=== PATIENT | male | born 2000 | race Caucasian/White ===

== ENCOUNTER 2019-02-06 09:09 | Emergency (ER) | payer OTHER, SELFPAY ==
[2019-02-06 09:14] VITALS: BP 142/82; PULSE 80; RESP 18; TEMP 36.6; O2SAT 97
--- NOTE | 2019-02-06 09:28 | W.ED.GENAD ---
Discharge Plan Disposition Patient Disposition: HOME Condition: Stable Discharge Details Chief Complaint: Abd Prob Clinical Impression: Diarrhea Primary Care Provider: Justyn Park ED Provider: Elias Leyva [place] Meds and New Rx's Prescriptions: New ondansetron 4 mg tablet,disintegrating 4 mg PO TID PRN (Reason: nausea and vomiting) 5 Days Qty: 20 RF: 0 No Action inhalational spacing device [Aerochamber Plus Flow-Vu] 1 EACH spacer 1 ea Miscellaneous PRN Qty: 1 RF: 0 Discharge Instructions Instructions: Acute Diarrhea (ED) Medical Decision Making 18 yo male who denies chronic medical problems comes in with cc of loose stools and intermittent constipation. Denies recent travel or new foods. Has had intermittent nausea, had a fever to 100 a week ago but none since. On exam he is in no distress, speaking in full sentences in no distress. He has no abdominal tenderness on exam and appears well hydrated. He has no symptoms at this present time. I do not feel emergent work up indicated given lack of symptoms and normal exam at this time. Will have him f/u with pcp and send home with stool collection kit if he has diarrhea again, and return precautions given Differential Diagnosis colitis, gastroenteritis, norovirus HPI General Mode of arrival: ambulatory. Date/Time Provider Initiated Documentation: 02/06/19 09:23. Limitations to Documentation: no limitations. Information obtained by: patient. History of Present Illness 18 year old M presents to the emergency department with the chief complaint of diarrhea, described as mild, Patient started experiencing this week(s) (1) No relieving factors improve symptom(s), No exacerbating factors reported . Patient did receive the following treatments prior to arrival, none Related Data Home Medications Medication Instructions Recorded Confirmed inhalational spacing device #1 script 08/23/16 [Aerochamber Plus Flow-Vu] ondansetron 4 mg PO TID PRN 5 Days #20 tab 02/06/19 Previous Rx's Medication Instructions Recorded ondansetron 4 mg PO TID PRN 5 Days #20 tab 02/06/19 Allergies Allergy/AdvReac Type Severity Reaction Status Date / Time erythromycin ethylsuccinate Allergy Intermediate GI Upset Unverified 02/06/19 09:18 [From Pediazole] sulfisoxazole acetyl Allergy Intermediate GI Upset Unverified 02/06/19 09:18 [From Pediazole] General Stated Complaint: Abd Prob NIKITA: 3 Review of Systems Review of Systems All systems reviewed & are unremarkable except as noted in HPI and below Constitutional Denies weakness Cardiovascular Denies chest pain and Denies dyspnea Respiratory Denies cough and Denies dyspnea Gastrointestinal Denies abdominal pain and Denies vomiting Integumentary/Breasts Denies rash Neurologic Denies weakness Endocrine Denies heat intolerance PFSH Family History Sister Hypothyroidism Social History Smoking/Tobacco Use Status: Current every day Drug use: Current Sobriety Exam Const General: no acute distress Orientation: alert HENMT Head: normal to inspection Ears: external ears normal General nose exam: external nose normal Mouth: moist mucous membranes Eyes General: appearance normal, both eyes and all related structures Neck Neck: normal visual inspection Resp Effort & Inspection: normal respiratory effort and able to speak in complete sentences Cardio Rate: regular rate GI Inspection: normal to inspection Skin General skin exam: no rashes or lesions noted Neuro General: alert and oriented x3 Extrem General: normal to inspection Psych Mental Status: mental status grossly normal Course Vital Signs Temperature 36.6 C 02/06/19 09:14 Pulse 80 02/06/19 09:14 Respiratory Rate 18 02/06/19 09:14 Blood Pressure 142/82 H 02/06/19 09:14 Pulse Oximetry 97 02/06/19 09:14 Temperature 36.6 C 02/06/19 09:14 Temperature Source Skin 02/06/19 09:14 Pulse 80 02/06/19 09:14 Respiratory Rate 18 02/06/19 09:14 Blood Pressure 142/82 H 02/06/19 09:14 Pulse Oximetry 97 02/06/19 09:14 Oxygen Delivery Method Room Air 02/06/19 09:14 Oxygen Flow Rate 0 02/06/19 09:14 Pain Level 4 02/06/19 09:14
--- NOTE | 2019-02-06 09:33 | ED.GENADUL_ITS ---
Discharge Plan Disposition Patient Disposition: HOME Condition: Stable Discharge Details Chief Complaint: Abd Prob Clinical Impression: Diarrhea Primary Care Provider: Justyn Park ED Provider: Elias Leyva [place] Meds and New Rx's Prescriptions: New ondansetron 4 mg tablet,disintegrating 4 mg PO TID PRN (Reason: nausea and vomiting) 5 Days Qty: 20 RF: 0 No Action inhalational spacing device [Aerochamber Plus Flow-Vu] 1 EACH spacer 1 ea Miscellaneous PRN Qty: 1 RF: 0 Discharge Instructions Instructions: Acute Diarrhea (ED) Medical Decision Making 18 yo male who denies chronic medical problems comes in with cc of loose stools and intermittent constipation. Denies recent travel or new foods. Has had intermittent nausea, had a fever to 100 a week ago but none since. On exam he is in no distress, speaking in full sentences in no distress. He has no abdominal tenderness on exam and appears well hydrated. He has no symptoms at this present time. I do not feel emergent work up indicated given lack of symptoms and normal exam at this time. Will have him f/u with pcp and send home with stool collection kit if he has diarrhea again, and return precautions given Differential Diagnosis colitis, gastroenteritis, norovirus HPI General Mode of arrival: ambulatory . Date/Time Provider Initiated Documentation: 02/06/19 09:23 . Limitations to Documentation: no limitations . Information obtained by: patient . History of Present Illness 18 year old M presents to the emergency department with the chief complaint of diarrhea, described as mild, Patient started experiencing this week(s) (1) No relieving factors improve symptom(s), No exacerbating factors reported . Patient did receive the following treatments prior to arrival, none Related Data Home Medications Medication Instructions Recorded Confirmed inhalational spacing device #1 script 08/23/16 [Aerochamber Plus Flow-Vu] ondansetron 4 mg PO TID PRN 5 Days #20 tab 02/06/19 Previous Rx's Medication Instructions Recorded ondansetron 4 mg PO TID PRN 5 Days #20 tab 02/06/19 Allergies Allergy/AdvReac Type Severity Reaction Status Date / Time erythromycin ethylsuccinate Allergy Intermediate GI Upset Unverified 02/06/19 09:18 [From Pediazole] sulfisoxazole acetyl Allergy Intermediate GI Upset Unverified 02/06/19 09:18 [From Pediazole] General Stated Complaint: Abd Prob NIKITA: 3 Review of Systems Review of Systems All systems reviewed & are unremarkable except as noted in HPI and below Constitutional Denies weakness Cardiovascular Denies chest pain and Denies dyspnea Respiratory Denies cough and Denies dyspnea Gastrointestinal Denies abdominal pain and Denies vomiting Integumentary/Breasts Denies rash Neurologic Denies weakness Endocrine Denies heat intolerance PFSH Family History Sister Hypothyroidism Social History Smoking/Tobacco Use Status: Current every day Drug use: Current Sobriety Exam Const General: no acute distress Orientation: alert HENMT Head: normal to inspection Ears: external ears normal General nose exam: external nose normal Mouth: moist mucous membranes Eyes General: appearance normal, both eyes and all related structures Neck Neck: normal visual inspection Resp Effort & Inspection: normal respiratory effort and able to speak in complete sentences Cardio Rate: regular rate GI Inspection: normal to inspection Skin General skin exam: no rashes or lesions noted Neuro General: alert and oriented x3 Extrem General: normal to inspection Psych Mental Status: mental status grossly normal Course Vital Signs Temperature 36.6 C 02/06/19 09:14 Pulse 80 02/06/19 09:14 Respiratory Rate 18 02/06/19 09:14 Blood Pressure 142/82 H 02/06/19 09:14 Pulse Oximetry 97 02/06/19 09:14 Temperature 36.6 C 02/06/19 09:14 Temperature Source Skin 02/06/19 09:14 Pulse 80 02/06/19 09:14 Respiratory Rate 18 02/06/19 09:14 Blood Pressure 142/82 H 02/06/19 09:14 Pulse Oximetry 97 02/06/19 09:14 Oxygen Delivery Method Room Air 02/06/19 09:14 Oxygen Flow Rate 0 02/06/19 09:14 Pain Level 4 02/06/19 09:14
== END 2019-02-06 09:37 | disposition home or self-care (01) ==
LOC: ER 09:38
PROVIDERS: Emergency Provider Emergency Medicine; PCP Pediatrics
DX: R19.7 Diarrhea, unspecified (principal); R11.0 Nausea
CPT/HCPCS: 99283

== ENCOUNTER 2019-11-24 15:16 | Emergency (ER) | payer BC, SELFPAY ==
[2019-11-24 15:21] VITALS: BP 154/79; PULSE 82; RESP 18; TEMP 36.6; O2SAT 99
--- NOTE | 2019-11-24 15:56 | ED.GENADUL_ITS ---
Discharge Plan Disposition Patient Disposition: HOME Condition: Stable Discharge Details Chief Complaint: GI Bleed Clinical Impression: Rectal bleeding Primary Care Provider: [facility] Provider: Olman Atkinson Home Meds and New Rx's Prescriptions: No Action (DME) inhalational spacing device [Aerochamber Plus Flow-Vu] 1 EACH spacer 1 ea Miscellaneous PRN Qty: 1 RF: 0 Discharge Instructions Instructions: Rectal Bleeding (ED) Additional Instructions: 1. Drink plenty of fluids. 2. Continue all medications as prescribed. 3. Acetaminophen 1000mg every 4 hours (up to 5 time a day) and/or ibuprofen 600mg every 6 hours as needed for fever or pain. 4. Use stool softeners and increase fiber in your diet for left constipation. 5. If constipation/diarrhea and/or rectal bleeding persist, follow-up with a construction operations manager. Return to the Emergency Department (ED) if your condition worsens, does not improve as expected, or for ANY other concerns. Specifically, return if you have new or uncontrolled pain, worsening fever, difficulty breathing, vomiting, or are unable to drink fluids. Medical Decision Making Presents after a more significant episode of rectal bleeding associated with defecation. Describes having 3 months of intermittent constipation and diarrhea and has had episodes of minimal rectal bleeding associated with bowel movements when constipated. Until today, he has noted blood on paper when he wipes. Today, he noted a tablespoon amount of blood on paper and also minimal blood in the bowl. Of note, he also has had significant anal pain after defecation. Otherwise has had no abdominal pain, bleeding without defecation, or any melena/hematochezia. Discussed clinical scenario suggestive of an anal fissure or internal hemorrhoid. Discharge the plan for increasing fiber in his diet/decreasing constipation and following up as an outpatient as needed for persistent symptoms. Given usual customary return instructions prior to discharge. Medical Records Medical records reviewed: Yes I reviewed the patient's medical records. HPI 19-year-old gent with an unremarkable past medical history presents with 3 months of intermittent rectal pain which worsened today. The patient notes he has had intermittent episodes of constipation and diarrhea over the past 3 months and has occasional episodes of bright red blood per rectum after bowel movements. He has blood when wiping. Of note, he has had no rectal bleeding associated with his diarrhea but has noted rectal pain during those events. When he is more constipated, he has had frequent episodes of blood on paper after wiping and severe pain at his anus after his bowel movement. Today, he noted more blood when wiping (approximately 1 tablespoon) and also a slight amount of blood in the bowl after defecating. He also had pain at his anus which was severe and then resolved. He otherwise denies any other constitutional complaints. He has had no fever/chills, palpitations, chest pain, dyspnea, generalized abdominal pain, urinary symptoms, or any blood in his stools. He denies hematochezia or melena. He has not had an evaluation over the past 2 months for the symptoms. General Date/Time Provider Initiated Documentation: 11/24/19 15:44 . Related Data Home Medications Medication Instructions Recorded Confirmed inhalational spacing device #1 script 08/23/16 [Aerochamber Plus Flow-Vu] Allergies Allergy/AdvReac Type Severity Reaction Status Date / Time erythromycin ethylsuccinate Allergy Intermediate GI Upset Unverified 11/24/19 15:26 [From Pediazole] sulfisoxazole acetyl Allergy Intermediate GI Upset Unverified 11/24/19 15:26 [From Pediazole] General Stated Complaint: GI Bleed NIKITA: 3 Review of Systems All systems reviewed & are unremarkable except as noted in HPI and below PFSH Family History Sister Hypothyroidism Social History Smoking/Tobacco Use Status: Current every day Alcohol Intake: current Alcohol Intake frequency: 3 or more drinks per day Drug use: Current Sobriety Do you feel safe at home: Yes Do you feel safe in your relationship?: Yes Exam Narrative Exam Narrative: Nursing note and vital signs have been reviewed and noted. GENERAL: alert, active, no acute distress, well -hydrated, well-nourished HEENT: atraumatic/normocephalic, PERRLA, EOMI, conjunctiva clear, external ears/canals normal, nasal mucosa normal NECK: supple, full range of motion CARDIOVASCULAR: nl pulses, no edema PULMONARY: nl effort, no audible wheezing or stridor ABDOMEN: non-distended RECTUM: No external hemorrhoids or significant anal fissure appreciated. EXTREMITY: normal muscle tone, all joints with FROM, no deformity NUERO: normal mentation, moving all extremities, normal stance and gait, PSYCH: alert and oriented SKIN: no new rashes or lesions Course Vital Signs Vital signs: Vital Signs Temperature 97.9 F 11/24/19 15:21 Pulse 82 11/24/19 15:21 Respiratory Rate 18 11/24/19 15:21 Blood Pressure 154/79 H 11/24/19 15:21 Pulse Oximetry 99 11/24/19 15:21 Temperature 97.9 F 11/24/19 15:21 Temperature Source Skin 11/24/19 15:21 Pulse 82 11/24/19 15:21 Respiratory Rate 18 11/24/19 15:21 Respiratory Effort Non-Labored 11/24/19 15:24 Blood Pressure 154/79 H 11/24/19 15:21 Blood Pressure Position Sitting 11/24/19 15:21 Pulse Oximetry 99 11/24/19 15:21 Oxygen Delivery Method Room Air 11/24/19 15:21 Oxygen Flow Rate 0 11/24/19 15:21 Pain Level 4 11/24/19 15:21 Lab/Test Results Lab/Test Results: Laboratory Tests Range/Units 11/24/19 15:30 WBC Cancelled RBC Cancelled Hgb Cancelled Hct Cancelled MCV Cancelled MCH Cancelled MCHC Cancelled RDW Cancelled Plt Count Cancelled MPV Cancelled
== END 2019-11-24 15:50 | disposition home or self-care (01) ==
PROVIDERS: Emergency Provider Emergency Medicine
DX: K62.5 Hemorrhage of anus and rectum (principal); K59.00 Constipation, unspecified
CPT/HCPCS: 85027; 99282

== ENCOUNTER 2019-12-07 13:09 | Outpatient (CLI) | payer BC, SELFPAY ==
[2019-12-07 13:41] LABS: Abs Immature Grans 0.01 k/cumm (0.0-0.09); Absolute Basophil Count 0.01 k/cumm (0.0-0.2); Absolute Eosinophil Count 0.06 k/cumm (0.0-0.7); Absolute Lymphocyte Count 1.62 k/cumm (1.2-3.4); Absolute Neutrophil Count 1.97 k/cumm (1.2-6.7); Basophils % 0.3; Eosinophils % 1.5; HCT 42.6 % (40.0-50.0); HGB 14.4 g/dL (13.5-17.5); Immature Grans % 0.3 %; Lymphocytes % 40.8; Mean Corp. HGB Concentration 33.8 g/dL (32.0-36.0); Mean Corpuscular Hemoglobin 29.1 pg (27.0-33.0); Mean Corpuscular Volume 86.1 fL (80-95); Mean Platelet Volume 10.4 fL (8.0-11.0); Monocytes % 7.6; Neutrophils % 49.5; Platelet Count 239 x1000/uL (130-400); RBC 4.95 m/cumm (4.50-6.00); RBC Distribution Width 12.6 % (11.8-14.1); White Blood Cell Count 3.97 k/cumm (4.4-10.8)
[2019-12-07 14:38] LABS: ALT 64 U/L (16-63); AST 33 U/L (15-37); Albumin 3.9 g/dL (3.4-5.0); Alkaline Phosphatase 107 U/L (46-116); Anion Gap 8.2 mmol/L (3-11); BUN 10 mg/dL (7-18); Bilirubin, Total 0.3 mg/dL (0.2-1.0); CO2 29.8 mmol/L (21.0-32.0); CREATININE 0.85 mg/dL (0.70-1.30); Calcium 9.1 mg/dL (8.5-10.1); Chloride 103 mmol/L (98-107); Glucose 87 mg/dL (74-106); Potassium 4.4 mmol/L (3.5-5.1); Sodium 141 mmol/L (136-145); TSH (W/Ref FT4) 1.51 uIU/mL (0.36-3.74)
== END 2019-12-07 13:29 ==
PROVIDERS: PCP Nurse Practitioner Adult Health; Visit Provider Nurse Practitioner Adult Health
DX: K62.5 Hemorrhage of anus and rectum (principal); R19.4 Change in bowel habit; F32.9 Major depressive disorder, single episode, unspecified
CPT/HCPCS: 36415; 80053; 82270; 84443; 85025

== ENCOUNTER 2020-05-06 14:40 | Outpatient (CLI) | payer BC, SELFPAY ==
[2020-05-07 17:44] LABS: COVID-19 RT-PCR UVMMC Result Negative (Negative)
== END 2020-05-06 15:00 ==
PROVIDERS: PCP Nurse Practitioner Adult Health; Visit Provider Nurse Practitioner Adult Health
DX: J02.9 Acute pharyngitis, unspecified (principal); R19.7 Diarrhea, unspecified; R50.9 Fever, unspecified
CPT/HCPCS: U0003

== ENCOUNTER 2021-02-09 09:26 | Outpatient (CLI) | payer BC, SELFPAY ==
[2021-02-10 12:38] LABS: COVID-19 RT-PCR UVMMC Result Negative (Negative)
== END 2021-02-09 09:27 | disposition home or self-care (01) ==
PROVIDERS: PCP Nurse Practitioner Adult Health; Visit Provider Nurse Practitioner Adult Health
DX: Z20.822 Contact with and (suspected) exposure to COVID-19 (principal)
CPT/HCPCS: U0003

== ENCOUNTER 2021-11-16 14:40 | Outpatient (REF) | payer BC, SELFPAY ==
[2021-11-17 19:45] LABS: COVID-19 RT-PCR UVMMC Result Positive (Negative)
== END 2021-11-16 14:41 | disposition home or self-care (01) ==
LOC: LBN 14:40
PROVIDERS: PCP Nurse Practitioner Adult Health; Visit Provider Student in an Organized Health Care Education/Training Program
DX: Z20.822 Contact with and (suspected) exposure to COVID-19 (principal)
CPT/HCPCS: U0003

== ENCOUNTER 2021-11-16 15:02 | Outpatient (CLI) | payer BC, SELFPAY ==
--- NOTE | 2021-11-16 14:30 | DI.RAD_ITS ---
Exam(s) XR CHEST 2V PA LATERAL EXAM: XR CHEST 2V PA LATERAL CLINICAL HISTORY: evaluate for pneumonia R06.02 SOB F17.200 SMOKER Z28.9 Z87.09 R06.89. TECHNIQUE: 2D digital imaging was performed. COMPARISON: No exams were available for comparison FINDINGS: Heart size is normal. The mediastinum is not widened. Right lung is clear. There are slightly increased suprahilar markings on the left side. No pleural effusions. No pneumothorax IMPRESSION: Mild increase left suprahilar markings. These may be vascular markings. Comparison a prior outside chest x-rays recommended. DATA REPOSITORY: RADIATION DOSE DELIVERED:
== END 2021-11-16 15:22 ==
PROVIDERS: PCP Nurse Practitioner Adult Health; Visit Provider Student in an Organized Health Care Education/Training Program
DX: R06.02 Shortness of breath (principal); F17.210 Nicotine dependence, cigarettes, uncomplicated; R91.8 Other nonspecific abnormal finding of lung field; R06.89 Other abnormalities of breathing; Z87.09 Personal history of other diseases of the respiratory system
CPT/HCPCS: 71046

== ENCOUNTER 2022-05-25 21:04 | Outpatient (REF) | payer BC, SELFPAY ==
[2022-05-25 21:29] LABS: Abs Immature Grans 0.01 10^3/uL (0.0-0.06); Absolute Basophil Count 0.02 10^3/uL (0.0-0.2); Absolute Eosinophil Count 0.03 10^3/uL (0.0-0.7); Absolute Lymphocyte Count 2.08 10^3/uL (1.2-3.4); Absolute Monocyte Count 0.29 10^3/uL (0.1-0.8); Absolute Neutrophil Count 3.19 10^3/uL (1.2-6.7); Basophils % 0.4; Eosinophils % 0.5; HCT 43.9 % (40.0-50.0); HGB 14.8 g/dL (13.5-17.5); Immature Grans % 0.2; MCH 29.5 pg (27.0-33.0); MCHC 33.7 % (32.0-36.0); MCV 88 fL (80-95); MPV 11.3 fL (8.0-11.0); Monocytes % 5.2; Neutrophils % 56.7; Platelet Count 222 10^3/uL (130-400); RBC 5.01 10^6/uL (4.36-5.78); RDW 13.2 % (11.8-14.1); RDW-SD 42.5 fL; WBC 5.62 10^3/uL (4.4-10.8)
[2022-05-25 21:38] LABS: ALT 42 U/L (16-63); AST 28 U/L (15-37); Albumin 4.5 g/dL (3.4-5.0); Alkaline Phosphatase 91 U/L (46-116); Anion Gap 9.6 mmol/L (3-11); BUN 14 mg/dL (7-18); Bilirubin, Total 0.3 mg/dL (0.2-1.0); CO2 29.4 mmol/L (21.0-32.0); CREATININE 0.8 mg/dL (0.70-1.30); Calcium 9.2 mg/dL (8.5-10.1); Chloride 102 mmol/L (98-107); Glucose 83 mg/dL (74-106); Potassium 3.8 mmol/L (3.5-5.1); Sodium 141 mmol/L (136-145); Total Protein 7.7 g/dL (6.4-8.2)
[2022-05-28 11:47] LABS: Lyme Ab w Rflx to Lyme Confirm Negative (Negative)
[2022-05-30 12:00] LABS: Anaplasma phagocytophilum Negative (Negative); B. miyamotoi PCR Negative (Negative); Babesia divergens/MO-1 Negative (Negative); Babesia duncani Negative (Negative); Babesia microti Negative (Negative); Ehrlichia chaffeensis Negative (Negative); Ehrlichia ewingii/canis Negative (Negative); Ehrlichia muris eauclairensis Negative (Negative)
[2022-05-30 14:00] LABS: EBV DNA Detect/Quant, P Undetected IU/mL (Undetected)
== END 2022-05-25 21:05 | disposition home or self-care (01) ==
LOC: LBN 21:04
PROVIDERS: PCP Nurse Practitioner Adult Health; Visit Provider Physician Assistant Medical
DX: R53.83 Other fatigue (principal); M79.18 Myalgia, other site; R63.4 Abnormal weight loss; Z86.16 Personal history of COVID-19
CPT/HCPCS: 80053; 87798; 87799; 85025; 86618

== ENCOUNTER 2022-06-18 03:23 | Outpatient (CLI) | payer BC, SELFPAY ==
[2022-06-18 11:12] LABS: Folate 14.5 ng/mL (8.6-20.0); TSH (W/Ref FT4) 2.17 uIU/mL (0.36-3.74); Vitamin B12 298 pg/mL (193-986)
== END 2022-06-18 03:24 | disposition home or self-care (01) ==
LOC: LBO 03:23
PROVIDERS: PCP Nurse Practitioner Adult Health; Visit Provider Nurse Practitioner Adult Health
DX: R53.83 Other fatigue (principal)
CPT/HCPCS: 36415; 82607; 82746; 84443

== ENCOUNTER 2022-10-15 15:16 | Outpatient (REF) | payer BC, SELFPAY ==
[2022-10-16 01:52] LABS: Influenza A RNA Result Negative (Negative); Influenza B RNA Result Negative (Negative); RSV RNA Result Negative (Negative)
== END 2022-10-15 15:17 | disposition home or self-care (01) ==
LOC: LBN 15:16
PROVIDERS: PCP Nurse Practitioner Adult Health; Visit Provider Nurse Practitioner Adult Health
DX: Z20.828 Contact with and (suspected) exposure to other viral communicable diseases (principal)
CPT/HCPCS: 87631

== ENCOUNTER 2023-06-10 04:40 | Outpatient (CLI) | payer MEDICAID, SELFPAY ==
[2023-06-10 11:37] LABS: Abs Immature Grans 0.01 10^3/uL (0.0-0.06); Absolute Basophil Count 0.03 10^3/uL (0.0-0.2); Absolute Eosinophil Count 0.02 10^3/uL (0.0-0.7); Absolute Lymphocyte Count 1.63 10^3/uL (1.2-3.4); Absolute Monocyte Count 0.25 10^3/uL (0.1-0.8); Absolute Neutrophil Count 3.26 10^3/uL (1.2-6.7); Basophils % 0.6; Eosinophils % 0.4; HCT 45.1 % (40.0-50.0); HGB 15.4 g/dL (13.5-17.5); Immature Grans % 0.2; Lymphocytes % 31.3; MCH 29.1 pg (27.0-33.0); MCHC 34.1 % (32.0-36.0); MCV 85 fL (80-95); MPV 10.2 fL (8.0-11.0); Monocytes % 4.8; Neutrophils % 62.7; Platelet Count 229 10^3/uL (130-400); RBC 5.29 10^6/uL (4.36-5.78); RDW 13.1 % (11.8-14.1); RDW-SD 40.7 fL
[2023-06-11 10:33] LABS: Lyme Ab w Rflx to Lyme Confirm Negative (Negative)
[2023-06-13 19:39] LABS: Anaplasma phagocytophilum Negative (Negative); B. miyamotoi PCR Negative (Negative); Babesia divergens/MO-1 Negative (Negative); Babesia duncani Negative (Negative); Babesia microti Negative (Negative); Ehrlichia chaffeensis Negative (Negative); Ehrlichia ewingii/canis Negative (Negative); Ehrlichia muris eauclairensis Negative (Negative)
== END 2023-06-10 04:41 | disposition home or self-care (01) ==
PROVIDERS: PCP Nurse Practitioner Adult Health; Visit Provider Physician Assistant
DX: R21 Rash and other nonspecific skin eruption (principal); W57.XXXA Bitten or stung by nonvenomous insect and other nonvenomous arthropods, initial encounter; T14.8XXA Other injury of unspecified body region, initial encounter
CPT/HCPCS: 36415; 87798; 85025; 86618

== ENCOUNTER 2023-12-25 19:05 | Emergency (ER) | payer SELFPAY ==
[2023-12-25 19:07] VITALS: BP 154/84; PULSE 76; RESP 16; TEMP 36.4; O2SAT 99
--- NOTE | 2023-12-25 19:15 | DI.RAD_ITS ---
Exam(s) XR HAND LT COMPLETE EXAM: XR HAND LT COMPLETE CLINICAL HISTORY: Left ring finger swelling, pain. TECHNIQUE: 2D digital imaging was performed. COMPARISON: No exams were available for comparison FINDINGS: 3 views No evidence of acute fracture nor dislocation nor radiopaque foreign bodies. Bone density normal. N o osseous lesions nor erosions. IMPRESSION: No acute osseous findings in the left hand. DATA REPOSITORY: RADIATION DOSE DELIVERED:
--- NOTE | 2023-12-25 19:28 | W.ED.GENAD ---
HPI General Mode of arrival: ambulatory. Date/Time Provider Initiated Documentation: 12/25/23 19:14. Limitations to Documentation: no limitations. Information obtained by: patient, RN notes reviewed and old records reviewed. HPI Narrative: 23-year-old male presents to the ER with a chief complaint of left ring finger swelling and bruising which he noticed approximately an hour and a half prior to arrival. Patient states that he smacked a cow but otherwise no known significant injury. He does have some ecchymosis noted to the palmar surface of his PIP joint, does have some increased pain and difficulty with flexion. No foreign body noted. Does have a history of asthma, alcohol abuse, tonsillectomy, smoker. Denies any wrist pain or any other associated symptoms. Did not take any medications prior to arrival. I did offer him analgesic which she declined at this time. Related Data Home Medications Medication Instructions Recorded Confirmed albuterol sulfate 90 mcg/actuation 2 puff inhalation Q6H shortness of 11/16/21 12/25/23 aerosol inhaler breath or wheezing #6.7 grams nicotine 7 mg/24 hr daily 1 patch transdermal Q24H #30 ea 01/23/23 12/25/23 transdermal patch nicotine (polacrilex) 2 mg gum 2 mg buccal Q2H PRN nicotine 02/02/23 12/25/23 (Nicorette) cravings #1 unit Previous Rx's Medication Instructions Recorded albuterol sulfate 90 mcg/actuation 2 puff inhalation Q6H shortness of 11/16/21 aerosol inhaler breath or wheezing #6.7 grams nicotine 7 mg/24 hr daily 1 patch transdermal Q24H #30 ea 01/23/23 transdermal patch nicotine (polacrilex) 2 mg gum 2 mg buccal Q2H PRN nicotine 02/02/23 (Nicorette) cravings #1 unit Allergies Allergy/AdvReac Type Severity Reaction Status Date / Time erythromycin ethylsuccinate AdvReac Intermediate GI Upset Verified 12/25/23 19:11 [From Pediazole] sulfisoxazole acetyl AdvReac Intermediate GI Upset Verified 12/25/23 19:11 [From Pediazole] General Stated Complaint: Orthopedic NIKITA: 4 Review of Systems Musculoskeletal Musculoskeletal: Reports as per HPI, Reports arthralgias and Reports joint swelling Exam Extrem Left upper extremity: hand Details: tenderness and ecchymosis Location: of the 4th digit Location: at the PIP joint and on the palmar aspect Course Vital Signs Vital signs: Vital Signs Temperature 36.4 C L 12/25/23 19:07 Pulse 76 12/25/23 19:07 Respiratory Rate 16 12/25/23 19:07 Blood Pressure 154/84 H 12/25/23 19:07 Pulse Oximetry 99 12/25/23 19:07 Temperature 36.4 C L 12/25/23 19:07 Temperature Source Skin 12/25/23 19:07 Pulse 76 12/25/23 19:07 Respiratory Rate 16 12/25/23 19:07 Respiratory Effort Normal, Non-Labored 12/25/23 19:11 Blood Pressure 154/84 H 12/25/23 19:07 Blood Pressure Position Supine 12/25/23 19:07 Pulse Oximetry 99 12/25/23 19:07 Oxygen Delivery Method Room Air 12/25/23 19:07 Oxygen Flow Rate 0 12/25/23 19:07 Pain Level 0 12/25/23 19:07 Medical Decision Making 23-year-old male presents to the ER with a chief complaint of left ring finger swelling and bruising which he noticed approximately an hour and a half prior to arrival. Patient states that he smacked a cow but otherwise no known significant injury. He does have some ecchymosis noted to the palmar surface of his PIP joint, does have some increased pain and difficulty with flexion. No foreign body noted. Does have a history of asthma, alcohol abuse, tonsillectomy, smoker. Denies any wrist pain or any other associated symptoms. Did not take any medications prior to arrival. I did offer him analgesic which she declined at this time. 1930: XR ordered and ice pack. X-ray negative. Given instructions for contusion Quality:[facility] Related Social Needs: No Data to Display PFSH All Active Problems (Updated 12/25/23 @ 19:53 by Eve Edwards NP) Contusion of finger of left hand (Acute) Dental decay (Acute ~05/2022) Instruction & encou to see dentist (has coverage) Nicotine dependence (Chronic) vape/cigs Medical History SARS-CoV-2 positive History of asthma Alcohol abuse Intermittent Bright red blood per rectum Infectious mononucleosis (04/15/14) Surgical History Hx of tonsillectomy Childhood ~4yo Family History Sister Hypothyroidism Anxiety Mother Anxiety Paternal Grandfather Brain cancer Social History Smoking/Tobacco Use Status: Current every day Tobacco: How many years used: 6 Smoking risk assessment performed?: Yes Alcohol Intake: current Alcohol Intake frequency: 3 or more drinks per day Alcohol type: hard liquor Details: intake varies, smoking began age 13 Drug use: Current Sobriety Substance use type: does not use Details: Patient vapes, previously used marijuana, d/c Nov 2018 Adopted: No Caregiver/Support person: No Foster care: No Household members: spouse and family Housing: apartment Number of Children: 1 Communication Needs: Corrective Lenses Education Level: high school Details: GED Do you need help understanding health information?: Rarely current occupation: [employer] Sexually active: Yes Do you think of yourself as: straight/heterosexual Current gender identity: male Special reji needs: No Seatbelt use: always Working smoke detector in home: Yes Fire extinguisher in home: Yes Carbon monox detector in home: Yes Do you feel safe at home: Yes Do you feel safe in your relationship?: Yes Discharge Plan Disposition Patient Disposition: Home Condition: Stable Discharge Details Clinical Impression: Contusion of finger of left hand Primary Care Provider: Mariia Diallo ED Provider: vEe Edwards [place] Meds and New Rx's Prescriptions: No Action albuterol sulfate 90 mcg/actuation HFA aerosol inhaler 2 puff inhalation Q6H Qty: 6.7 1RF Rx Instructions: Dispense brand best covered under insurance nicotine 7 mg/24 hr patch 24 hour 1 patch transdermal Q24H Qty: 30 1RF Rx Instructions: Nicotine cessation nicotine (polacrilex) [Nicorette] 2 mg gum 2 mg buccal Q2H PRN (Reason: nicotine cravings) Qty: 1 1RF Rx Instructions: dispense 1 box per pharm request Discharge Instructions Instructions: Contusion in Adults (ED) Additional Instructions: No evidence of fracture or broken bone on the x-ray. I do suspect that you bruised or jammed your finger. Ice it you may kadie tape it if it continues to bother you. Please take Tylenol or Ibuprofen with food every 4-6 hours as needed for pain and swelling. Thank you for allowing us to care for you today. Referrals: Mariia Diallo REAL ESTATE LEASING AGENT [Primary Care Provider] - Return if symptoms worsen Discharge Data Discharge Date/Time-TO BE ENTERED AT DEPARTURE: 12/25/23 19:59
--- NOTE | 2023-12-25 19:53 | DI.VRAD_ITS ---
PROCEDURE INFORMATION: Exam: XR Left Hand Exam date and time: 12/25/2023 7:40 PM Age: 23 years old Clinical indication: Other: Left ring finger swelling pain TECHNIQUE: Imaging protocol: Radiologic exam of the left hand. Views: 3 or more views. Total images: 3 COMPARISON: No relevant prior studies available. FINDINGS: Bones/joints: Bone mineralization is normal. No acute fracture or dislocation. Joint spaces appear normal. Soft tissues: Soft tissues appear normal. No radiopaque foreign bodies. IMPRESSION: No acute fracture or dislocation. Dictated and Authenticated by: Bethanie Silva MD. Ordering:ARMANI Prado MD
== END 2023-12-25 19:59 | disposition home or self-care (01) ==
PROVIDERS: Emergency Provider Registered Nurse Emergency; PCP Nurse Practitioner Adult Health
DX: S60.042A Contusion of left ring finger without damage to nail, initial encounter (principal); W22.8XXA Striking against or struck by other objects, initial encounter
CPT/HCPCS: 99283; 73130